=== PATIENT | female | born 1985 | race Caucasian/White ===

== ENCOUNTER 2022-02-21 08:02 | Outpatient (CLI) | payer OTHER, SELFPAY ==
[2022-02-21 18:22] LABS: Basophils Absolute Auto 0.1 K/mm3 (0.0-0.1); Basophils Percent Auto 0.6 % (0.2-1.2); Eosinophils Absolute Auto 0.3 K/mm3 (0-0.3); Eosinophils Percent Auto 3.1 % (0-4.4); Hemoglobin 14.1 g/dL (12.0-15.0); Immature Granulocyte Absolute 0.06 K/mm3 (0.00-0.031); Immature Granulocyte Percent A 0.6 % (0-0.5); Lymphocytes Absolute Auto 1.88 K/mm3 (0.9-3.2); Lymphocytes Percent Auto 17.4 % (18.3-44.2); Mean Corpuscular HGB Conc 32.8 g/dl (32-36); Mean Corpuscular Hemoglobin 30.7 pg (26-34); Mean Corpuscular Volume 93.5 fl (80-100); Monocytes Absolute Auto 0.7 K/mm3 (0.1-0.6); Monocytes Percent Auto 6.4 % (2.6-8.5); Neutrophils Absolute Auto 7.8 K/mm3 (1.3-6.7); Neutrophils Percent Auto 71.9 % (45.5-73.1); Platelet Count Result 341 k/mm3 (150-375); Red Cell Distribution Width 11.9 % (11.5-14.5); White Blood Count 10.8 K/mm3 (4.5-10.0)
[2022-02-21 19:10] LABS: Alanine Aminotransferase 20 U/L (6-35); Albumin Level 4.6 g/dL (3.5-5.1); Alkaline Phosphatase 72 U/L (38-126); Anion Gap 12 mmol/L (8-16); Aspartate Amino Transferase 34 U/L (14-36); Bilirubin,Total 0.5 mg/dL (0.2-1.3); Blood Urea Nitrogen 15 mg/dL (7-17); Calcium 9.4 mg/dL (8.4-10.2); Carbon Dioxide 23 mmol/L (22-30); Chloride 102 mmol/L (98-107); Cholesterol 211 mg/dL (0-200); Estimated Glomerular Filt Rate > 60; Glucose 65 mg/dL (65-110); HDL Direct 61 mg/dL; Potassium 4.6 mmol/L (3.4-5.0); Sodium 137 mmol/L (137-145); Triglycerides 159 mg/dL (<150)
[2022-02-21 19:21] LABS: LDL Cholesterol Direct 127 mg/dL
[2022-02-21 19:50] LABS: Hemoglobin A1C 4.6 % (<5.7)
== END 2022-02-21 08:03 | disposition home or self-care (01) ==
LOC: ANHGOSHLAB 08:04
PROVIDERS: PCP Emergency Medicine; Visit Provider Emergency Medicine
DX: F41.9 Anxiety disorder, unspecified (principal); E66.9 Obesity, unspecified
CPT/HCPCS: 36415; 80053; 80061; 83036; 84443; 85025

== ENCOUNTER 2023-02-18 16:05 | Outpatient (CLI) | payer OTHER, SELFPAY ==
[2023-02-18 20:33] LABS: Total Triiodothyronine (T3) 1.33 NG/ML (0.97-1.69)
[2023-02-18 20:40] LABS: Free T4 Free Thyroxine 1.08 ng/mL (0.78-2.19)
== END 2023-02-18 16:06 | disposition home or self-care (01) ==
LOC: ANHGOSHLAB 16:06
PROVIDERS: PCP Emergency Medicine; Visit Provider Emergency Medicine
DX: R63.5 Abnormal weight gain (principal)
CPT/HCPCS: 36415; 84439; 84443; 84480

== ENCOUNTER 2024-03-21 10:19 | Emergency (ER) | payer OTHER, SELFPAY ==
[2024-03-21 10:37] VITALS: BP 143/81; PULSE 100; RESP 16; TEMP 36.1; O2SAT 100
--- NOTE | 2024-03-21 11:16 | ED.URI ---
HPI - URI/Sore Throat General Chief Complaint: Upper Respiratory Infection Stated Complaint: Fever/Cough/Bodyaches Time Seen by Provider: 03/21/24 11:16 Source: patient Mode of arrival: ambulatory Limitations: no limitations History of Present Illness HPI Narrative: 38-year-old female presents with complaint of cough, fever, fatigue, body aches, chills for 5 days. Patient reports that her daughter is currently on antibiotics for pneumonia. Patient denies chest pain or shortness breath. Denies nausea vomiting diarrhea. All systems reviewed and negative except as noted above. Related Data Home Medications Medication Instructions Recorded Confirmed norethindrone 1.5 mg-ethinyl 1 tablet PO DAILY 05/05/19 03/21/24 estradiol 30 mcg(21)/iron 75 mg(7) tablet (Junel FE 1.5/30 (28)) cetirizine 10 mg tablet (Zyrtec) 10 mg PO DAILY 03/21/24 03/21/24 Allergies Allergy/AdvReac Type Severity Reaction Status Date / Time amoxicillin Allergy Unknown unknown Unverified 03/21/24 10:38 potassium chloride Allergy Unknown unknown Unverified 03/21/24 10:38 Sulfa (Sulfonamide Allergy Unknown Unknown Unverified 03/21/24 10:38 Antibiotics) sulfur dioxide Allergy Unknown Unknown Verified 03/21/24 10:38 Review of Systems Review of Systems: CONSTITUTIONAL: Reports fever, chills, or sweats. Reports fatigue. EYES: Denies visual changes, redness, or discharge. ENT: Denies rhinorrhea, congestion, sore throat, or otalgia. CARDIOVASCULAR: Denies chest pain, palpitations, or edema. RESPIRATORY: Reports cough. Denies dyspnea. GASTROINTESTINAL: Denies abdominal pain, nausea, vomiting, or diarrhea. GENITOURINARY: Denies dysuria or hematuria. SKIN: Denies rash or itching. MUSCULOSKELETAL: Denies back pain, joint pain. Reports myalgia. NEUROLOGIC: Denies headache, numbness, or weakness. PSYCHIATRIC: Denies anxiety or depression. All other systems reviewed are negative, except as documented in HPI. [facility] Family History Family History Grandparent Diabetes mellitus Mother Family history of migraine headaches Father Hypertension Social History Social History Smoking status: Never smoker Alcohol intake: current Lack of Transportation: No Lack of Food: Never True Current Housing: I Have Housing Concerned About Future Housing: No Difficulty Paying Gas/Electric Bills: No Difficulty Paying for Meds: No Currently Unemployed: No Education: Bachelor's Degree Difficulty w/ Childcare or Family Care: No Comments At time of signature, agree with nursing past medical, surgical, social and family history. There is no relevant family history pertinent to the presenting complaint. Exam Narrative: GENERAL: This is a well-nourished, well-developed patient, in no apparent distress. HEAD: normocephalic, atraumatic. EYES: PERRL. Sclera clear/white. Vision is grossly intact. EARS: External ears normal, auditory canals clear and without drainage, TMs normal without perforation. Hearing grossly intact. NOSE: External nose normal with no obvious nasal discharge, nares without redness, no rhinorrhea. THROAT: Mucous membranes moist, posterior pharynx clear. NECK: Neck supple, non-tender without lymphadenopathy, masses or thyromegaly. CARDIOVASCULAR: Regular rate and rhythm without murmurs, gallops, or rubs. RESPIRATORY: Rhonchi to right lower lung jack on expiration otherwise clear Breath sounds equal bilaterally. No wheezes, rales SKIN: warm, Dry, intact with no suspicious lesions or rash, good texture and turgor. NEURO: awake, alert, and oriented to person, place and time. There were no obvious focal neurologic abnormalities. EXTREMITIES: No joint tenderness, effusion, or edema noted. Course Course Level of Care: Express Care Visit Vital Signs Vital signs: Vital Signs Temperature 36.1 C L 03/21/24 10:37 Pu
== END 2024-03-21 11:26 | disposition home or self-care (01) ==
PROVIDERS: Emergency Provider Nurse Practitioner Family; PCP Emergency Medicine
DX: J18.9 Pneumonia, unspecified organism (principal)
CPT/HCPCS: 99213; G0463